=== PATIENT | male | born 1950 | race Caucasian/White ===

== ENCOUNTER 2021-10-06 12:16 | Outpatient (REF) | payer MEDICARE, SELFPAY ==
[2021-10-06 12:48] LABS: COVID-19 Test Negative (Negative); IDNOW Serial# 08D9AD1C
== END 2021-10-06 12:17 | disposition home or self-care (01) ==
LOC: HO.LAB 12:16
PROVIDERS: Visit Provider Internal Medicine
DX: Z20.822 Contact with and (suspected) exposure to COVID-19 (principal)
CPT/HCPCS: 36415; 87635; C9803

== ENCOUNTER 2023-10-18 06:21 | Day surgery (SDC) | payer MEDICARE, SELFPAY ==
[2023-10-13 14:09] VITALS: BMI 28.9
--- NOTE | 2023-10-15 07:20 | MHC.SHP ---
Pre-Procedural Eval Section A Date of Service: 10/15/23 The patient is an INPATIENT: No Changes since office visit: No Cold of Flu in the past 2 weeks, No New Medical Problems, No Changes in Medication and No Patient answered all questions The History & Physical has been completed within 30 days and I have reviewed it.: Yes Section B Chief Complaint: Age-related nuclear cataract, left eye Allergies: Allergies Allergy/AdvReac Type Severity Reaction Status Date / Time heparin Allergy Unknown Verified 10/13/23 10:13 horse serum Allergy Unknown Uncoded 10/13/23 10:13 Plan Diagnosis/Plan: Unchanged I have reviewed the history and physical and performed a pertinent physical examination on my patient. No changes have occurred unless specified. Time Spent With Patient Time: Total time managing care of this patient today ____ minutes.
--- NOTE | 2023-10-15 09:35 | P.CONAN_ITS ---
Documented by User: Charmaine Cortez NP 10/15/23 09:37 HPI - Anesthesia Eval Consult details Narrative: 72yo M for Left Cataract Extraction IOL Insertion Medically cleared No previous cataract Eliquis for afib s/p AVR [facility], [facility] Past Medical History Medical History (Updated 10/13/23 @ 13:51 by Sarai Richards RN) Skin cancer GERD (gastroesophageal reflux disease) Hyperlipidemia HTN (hypertension) Myocardial infarction Erectile dysfunction Microalbuminuria Post-nasal drip Diabetes Sleep apnea Aortic aneurysm without rupture DVT (deep venous thrombosis) Atrial fibrillation CAD (coronary artery disease) Insomnia Obesity (BMI 30.0-34.9) Ischemic cardiomyopathy History of cardioversion Hematoma Elevated serum creatinine Surgical History Surgical History (Updated 10/13/23 @ 13:53 by Sarai Richards RN) Hx of tonsillectomy Hx of coronary angioplasty H/O colonoscopy Hx of stentless aortic valve replacement Hx of CABG Social History Social History Are you a primary home care physical therapist to a significant other at home: No Do you presently have visiting nurse or other home services: No Patient Tobacco Use Status: Never used Tobacco Use of substances other than those prescribed or required for medical reasons: No Have you been hit, kicked, punched, or otherwise hurt by someone within the past year? If so, by whom?: No Advance Directives Information Provided: Yes Advance Directives on File: No Recently lost weight without trying: No Eating poorly because of decreased appetite: No Nutrition Risks: No Nutritional Risk Meds Allergies Allergy/AdvReac Type Severity Reaction Status Date / Time heparin Allergy Unknown Verified 10/13/23 10:13 horse serum Allergy Unknown Uncoded 10/13/23 10:13 Home Medications Medication Instructions Recorded Confirmed Last Taken Type amlodipine 5 mg tablet 10 mg PO DAILY 10/13/23 10/18/23 10/18/23 History apixaban 5 mg tablet (Eliquis) 5 mg PO BID 10/13/23 10/18/23 10/16/23 History ascorbic acid (vitamin C) 1,000 mg 1,000 mg PO BEDTIME 10/13/23 10/13/23 Unknown History tablet aspirin 81 mg tablet,delayed 81 mg PO DAILY 10/13/23 10/18/23 10/18/23 History release atorvastatin 80 mg tablet 80 mg PO DAILY 10/13/23 10/18/23 10/18/23 History cholecalciferol (vitamin D3) 25 25 mcg PO DAILY 10/13/23 10/13/23 Unknown History mcg (1,000 unit) tablet (Vitamin D3) chromium picolinate 200 mcg tablet 200 mcg PO DAILY 10/13/23 10/13/23 Unknown History coenzyme Q10 30 mg capsule 30 mg PO DAILY 10/13/23 10/13/23 Unknown History esomeprazole magnesium 20 mg 20 mg PO DAILY 10/13/23 10/18/23 10/18/23 History capsule,delayed release (Nexium) insulin glargine 100 unit/mL (3 46 unit subcut QPM 10/13/23 10/18/23 10/17/23 History mL) subcutaneous pen (Lantus Solostar U-100 Insulin) isosorbide mononitrate 30 mg 30 mg PO BEDTIME 10/13/23 10/13/23 Unknown History tablet,extended release 24 hr losartan 100 mg tablet 100 mg PO DAILY 10/13/23 10/13/23 Unknown History metformin 850 mg tablet 850 mg PO DAILY 10/13/23 10/13/23 Unknown History metoprolol succinate 100 mg 50 mg PO DAILY 10/13/23 10/18/23 10/18/23 History tablet,extended release 24 hr multivitamin 1 tab PO DAILY 10/13/23 10/13/23 Unknown History omega 8-hnd-laj-fish oil 1,000 mg 1 cap PO DAILY 10/13/23 10/13/23 Unknown History (120 mg-180 mg) capsule (Fish Oil) tamsulosin 0.4 mg capsule 0.4 mg PO BEDTIME 10/13/23 10/13/23 Unknown History vitamin E 268 mg (400 unit) capsule 268 mg PO DAILY 10/13/23 10/13/23 Unknown History Exam Height,Weight and Vital Signs: Height 5 ft 8 in Weight 86.183 kg Assessment and Plan Assessment Anesthesia Assessment: Chart Reviewed Documented by User: Dora Doran MD 10/18/23 07:25 PMFSH Past Medical History Medical History (Updated 10/13/23 @ 13:51 by Sarai Richards RN) Skin cancer GERD (gastroesophageal reflux disease) Hyperlipidemia HTN (hypertension) Myocardial infarction Erectile dysfunction Microalbuminuria Post-nasal drip Diabetes Sleep apnea Aortic aneurysm without rupture DVT (deep venous thrombosis) Atrial fibrillation CAD (coronary artery disease) Insomnia Obesity (BMI 30.0-34.9) Ischemic cardiomyopathy History of cardioversion Hematoma Elevated serum creatinine Family History Family history of problems with anesthesia: No Surgical History Surgical History (Updated 10/13/23 @ 13:53 by Sarai Richards RN) Hx of tonsillectomy Hx of coronary angioplasty H/O colonoscopy Hx of stentless aortic valve replacement Hx of CABG History of Problems with Anesthesia: No Social History Social History Are you a primary home care physical therapist to a significant other at home: No Do you presently have visiting nurse or other home services: No Patient Tobacco Use Status: Never used Tobacco Use of substances other than those prescribed or required for medical reasons: No Have you been hit, kicked, punched, or otherwise hurt by someone within the past year? If so, by whom?: No Advance Directives Information Provided: Yes Advance Directives on File: No Recently lost weight without trying: No Eating poorly because of decreased appetite: No Nutrition Risks: No Nutritional Risk Meds Allergies Allergy/AdvReac Type Severity Reaction Status Date / Time heparin Allergy Unknown Verified 10/13/23 10:13 horse serum Allergy Unknown Uncoded 10/13/23 10:13 Home Medications Medication Instructions Recorded Confirmed Last Taken Type amlodipine 5 mg tablet 10 mg PO DAILY 10/13/23 10/18/23 10/18/23 History apixaban 5 mg tablet (Eliquis) 5 mg PO BID 10/13/23 10/18/23 10/16/23 History ascorbic acid (vitamin C) 1,000 mg 1,000 mg PO BEDTIME 10/13/23 10/13/23 Unknown History tablet aspirin 81 mg tablet,delayed 81 mg PO DAILY 10/13/23 10/18/23 10/18/23 History release atorvastatin 80 mg tablet 80 mg PO DAILY 10/13/23 10/18/23 10/18/23 History cholecalciferol (vitamin D3) 25 25 mcg PO DAILY 10/13/23 10/13/23 Unknown History mcg (1,000 unit) tablet (Vitamin D3) chromium picolinate 200 mcg tablet 200 mcg PO DAILY 10/13/23 10/13/23 Unknown History coenzyme Q10 30 mg capsule 30 mg PO DAILY 10/13/23 10/13/23 Unknown History esomeprazole magnesium 20 mg 20 mg PO DAILY 10/13/23 10/18/23 10/18/23 History capsule,delayed release (Nexium) insulin glargine 100 unit/mL (3 46 unit subcut QPM 10/13/23 10/18/23 10/17/23 History mL) subcutaneous pen (Lantus Solostar U-100 Insulin) isosorbide mononitrate 30 mg 30 mg PO BEDTIME 10/13/23 10/13/23 Unknown History tablet,extended release 24 hr losartan 100 mg tablet 100 mg PO DAILY 10/13/23 10/13/23 Unknown History metformin 850 mg tablet 850 mg PO DAILY 10/13/23 10/13/23 Unknown History metoprolol succinate 100 mg 50 mg PO DAILY 10/13/23 10/18/23 10/18/23 History tablet,extended release 24 hr multivitamin 1 tab PO DAILY 10/13/23 10/13/23 Unknown History omega 8-zwi-odx-fish oil 1,000 mg 1 cap PO DAILY 10/13/23 10/13/23 Unknown History (120 mg-180 mg) capsule (Fish Oil) tamsulosin 0.4 mg capsule 0.4 mg PO BEDTIME 10/13/23 10/13/23 Unknown History vitamin E 268 mg (400 unit) capsule 268 mg PO DAILY 10/13/23 10/13/23 Unknown History Exam Airway Mallampati Class: II TM Dist: >3cm Neck ROM: Full Denture: Upper Heart: rrr Lungs: cta Assessment and Plan Assessment Anesthesia Assessment: Anesthesia Plan Discussed Final Anesthetic Review Family History of Problems with Anesthesia: No History of Problems with Anesthesia: No NPO: Yes ASA Class: III Final Preanesthetic Review: No Changes in Pt Med Stat, Meds/Allgs Chart Reviewed and Consent Obtained/Reviewed Patient Risk: Intermediate Procedure Risk: Intermediate Anesthetic Plan Anesthetic Plan: MAC: Disposition: Standard PACU
[2023-10-18 07:26] LABS: Glucose, Whole Blood 154 mg/dL (60-115)
[2023-10-18] MEDS: Tetracaine HCl/PF 0.5% Oph Sol 4 ML DROPS 1 DROP EYE-LEFT (07:28)
[2023-10-18] MEDS: Cyclopentolate 1 % Ophth Sol 2 ML DRPBTL 1 DROP EYE-LEFT ×3 (07:30→07:46)
[2023-10-18] MEDS: Tropicamide 1 % Ophth Sol 3 ML BTL 1 DROP EYE-LEFT ×3 (07:32→07:48)
[2023-10-18] MEDS: Ketorolac Tromethamine 0.5% Op 5 ML DROPS 1 DROP EYE-LEFT ×3 (07:34→07:50)
[2023-10-18] MEDS: Phenylephrine HCL 2.5% Oph SoL 2 ML BOTTLE 1 DROP EYE-LEFT ×3 (07:36→07:52)
[2023-10-18 07:44] VITALS: BP 137/81; PULSE 82; RESP 16; TEMP 36.6; O2SAT 98
[2023-10-18] MEDS: Lactated Ringers 500 ML 50 ML IV (07:44)
--- NOTE | 2023-10-18 08:22 | HO.PNOPHT ---
Ophthalmology Procedure Procedure Date of Service: 10/18/23 Ophthalmology Viscoelastic: Healleyla Duet Dual Pack Pro Ophthalmology Lenses: TECZULEMA [id number] (23) Procedure Notes: PREOPERATIVE DIAGNOSIS: Decreased visual acuity left eye secondary to cataract POSTOPERATIVE DIAGNOSIS: Same PROCEDURE: Left cataract extraction with intraocular lens insertion SURGEON: Mauricio Mcnally M.D. ANESTHESIA: Topical/MAC ESTIMATED BLOOD LOSS: None COMPLICATIONS: None After obtaining informed consent, the patient was brought to the operation room suite and placed in the supine position. After adequate sedation per anesthesia, topical drops of Tetracaine were given to the left eye. The eye was then prepped and draped in the usual sterile fashion. The operating room microscope was then positioned over the operative eye and a lid speculum placed. A paracentesis was created. Viscoelastic was then instilled into the anterior chamber. A three plane incision was then created temporally, utilizing a 2.85 mm keratome. Capsulotomy forceps were then utilized to create a circular tear capsulotomy. Hydrodissection and hydrodelineation were carried out until adequate mobilization of the nucleus occurred. Phacoemulsification was then utilized to remove the dense central nucleus followed by removal of the cortical material utilizing the automated aspiration irrigation unit. Viscoat elastic was instilled into the posterior capsular bag followed by placement of a posterior chamber intraocular lens without difficulty. The residual Viscoat elastic was then removed utilizing the automated IA machine. The wound was check and found to be watertight. The patient tolerated the procedure well and the lid speculum was removed. Intracameral injection of Vigamox 0.1 mL followed by a subtenon injection of Kenalog-40 0.2 mL were administered. The patient will be seen in the a.m.
[2023-10-18 08:47] VITALS: BP 124/75; RESP 16; TEMP 36.7; O2SAT 98
== END 2023-10-18 08:57 | disposition home or self-care (01) ==
PROVIDERS: PCP Internal Medicine; Visit Provider Ophthalmology
PROC: (CPT 66985; principal; 2023-10-18 08:20)
DX: H25.12 Age-related nuclear cataract, left eye (principal); H52.4 Presbyopia; I25.10 Atherosclerotic heart disease of native coronary artery without angina pectoris; Z95.1 Presence of aortocoronary bypass graft; I10 Essential (primary) hypertension; E78.00 Pure hypercholesterolemia, unspecified; E11.9 Type 2 diabetes mellitus without complications; Z79.4 Long term (current) use of insulin; Z79.84 Long term (current) use of oral hypoglycemic drugs; Z79.01 Long term (current) use of anticoagulants; Z79.82 Long term (current) use of aspirin; Z79.899 Other long term (current) drug therapy; Z88.8 Allergy status to other drugs, medicaments and biological substances; Z87.891 Personal history of nicotine dependence
CPT/HCPCS: 66984; 82947; J2250; J3010; J3301; V2632

== ENCOUNTER 2023-11-08 07:04 | Day surgery (SDC) | payer MEDICARE, SELFPAY ==
[2023-10-13 14:13] VITALS: BMI 28.9
--- NOTE | 2023-11-05 07:57 | MHC.SHP ---
Pre-Procedural Eval Section A Date of Service: 11/05/23 The patient is an INPATIENT: No Changes since office visit: No Cold of Flu in the past 2 weeks, No New Medical Problems, No Changes in Medication and No Patient answered all questions The History & Physical has been completed within 30 days and I have reviewed it.: Yes Section B Chief Complaint: Age-related nuclear cataract, right eye Allergies: Allergies Allergy/AdvReac Type Severity Reaction Status Date / Time heparin Allergy Unknown Verified 10/13/23 10:13 horse serum Allergy Unknown Uncoded 10/13/23 10:13 Plan Diagnosis/Plan: Unchanged I have reviewed the history and physical and performed a pertinent physical examination on my patient. No changes have occurred unless specified. Time Spent With Patient Time: Total time managing care of this patient today ____ minutes.
--- NOTE | 2023-11-05 09:16 | HO.ANESPROP2 ---
Documented by User: Charmaine Cortez NP 11/05/23 09:17 HPI - Anesthesia Eval Consult details Narrative: 72yo M for Right Cataract Multifocal with IOL Insertion Medically cleared Left eye 10/18/23: Fent 50, Midaz 1 Eliquis for afib PMFSH Past Medical History Medical History Skin cancer GERD (gastroesophageal reflux disease) Hyperlipidemia HTN (hypertension) Myocardial infarction Erectile dysfunction Microalbuminuria Post-nasal drip Diabetes Sleep apnea Aortic aneurysm without rupture DVT (deep venous thrombosis) Atrial fibrillation CAD (coronary artery disease) Insomnia Obesity (BMI 30.0-34.9) Ischemic cardiomyopathy History of cardioversion Hematoma Elevated serum creatinine Family History Family history of problems with anesthesia: No Surgical History Surgical History Hx of tonsillectomy Hx of coronary angioplasty H/O colonoscopy Hx of stentless aortic valve replacement Hx of CABG History of Problems with Anesthesia: No Social History Social History Are you a primary child care lead teacher to a significant other at home: No Do you presently have visiting nurse or other home services: No Patient Tobacco Use Status: Never used Tobacco Use of substances other than those prescribed or required for medical reasons: No Have you been hit, kicked, punched, or otherwise hurt by someone within the past year? If so, by whom?: No Are you DNR?: No Advance Directives: No Advance Directives Information Provided: Yes Advance Directives on File: No Recently lost weight without trying: No Eating poorly because of decreased appetite: No Nutrition Risks: No Nutritional Risk Poor oral hygiene: Yes (full upper denture) Meds Allergies Allergy/AdvReac Type Severity Reaction Status Date / Time heparin Allergy Unknown Verified 10/13/23 10:13 horse serum Allergy Unknown Uncoded 10/13/23 10:13 Home Medications Medication Instructions Recorded Confirmed Last Taken Type amlodipine 5 mg tablet 10 mg PO DAILY 10/13/23 10/18/23 11/08/23 History apixaban 5 mg tablet (Eliquis) 5 mg PO BID 10/13/23 10/18/23 11/06/23 History ascorbic acid (vitamin C) 1,000 mg 1,000 mg PO BEDTIME 10/13/23 10/13/23 Unknown History tablet aspirin 81 mg tablet,delayed 81 mg PO DAILY 10/13/23 10/18/23 11/08/23 History release atorvastatin 80 mg tablet 80 mg PO DAILY 10/13/23 10/18/23 10/18/23 History cholecalciferol (vitamin D3) 25 25 mcg PO DAILY 10/13/23 10/13/23 Unknown History mcg (1,000 unit) tablet (Vitamin D3) chromium picolinate 200 mcg tablet 200 mcg PO DAILY 10/13/23 10/13/23 Unknown History coenzyme Q10 30 mg capsule 30 mg PO DAILY 10/13/23 10/13/23 Unknown History esomeprazole magnesium 20 mg 20 mg PO DAILY 10/13/23 10/18/23 10/18/23 History capsule,delayed release (Nexium) insulin glargine 100 unit/mL (3 46 unit subcut QPM 10/13/23 11/08/23 11/07/23 History mL) subcutaneous pen (Lantus Solostar U-100 Insulin) isosorbide mononitrate 30 mg 30 mg PO BEDTIME 10/13/23 10/13/23 11/08/23 History tablet,extended release 24 hr losartan 100 mg tablet 100 mg PO DAILY 10/13/23 10/13/23 Unknown History metformin 850 mg tablet 850 mg PO DAILY 10/13/23 10/13/23 11/07/23 History metoprolol succinate 100 mg 50 mg PO DAILY 10/13/23 10/18/23 11/08/23 History tablet,extended release 24 hr multivitamin 1 tab PO DAILY 10/13/23 10/13/23 Unknown History omega 9-sig-jcv-fish oil 1,000 mg 1 cap PO DAILY 10/13/23 10/13/23 11/07/23 History (120 mg-180 mg) capsule (Fish Oil) tamsulosin 0.4 mg capsule 0.4 mg PO BEDTIME 10/13/23 10/13/23 Unknown History vitamin E 268 mg (400 unit) capsule 268 mg PO DAILY 10/13/23 10/13/23 Unknown History Exam Height,Weight and Vital Signs: Height 5 ft 8 in Weight 86.183 kg Assessment and Plan Assessment Anesthesia Assessment: Chart Reviewed Final Anesthetic Review Family History of Problems with Anesthesia: No History of Problems with Anesthesia: No Documented by User: Khushi Wing MD 11/08/23 08:24 [facility] Past Medical History Medical History Skin cancer GERD (gastroesophageal reflux disease) Hyperlipidemia HTN (hypertension) Myocardial infarction Erectile dysfunction Microalbuminuria Post-nasal drip Diabetes Sleep apnea Aortic aneurysm without rupture DVT (deep venous thrombosis) Atrial fibrillation CAD (coronary artery disease) Insomnia Obesity (BMI 30.0-34.9) Ischemic cardiomyopathy History of cardioversion Hematoma Elevated serum creatinine Surgical History Surgical History Hx of tonsillectomy Hx of coronary angioplasty H/O colonoscopy Hx of stentless aortic valve replacement Hx of CABG Social History Social History Are you a primary child care lead teacher to a significant other at home: No Do you presently have visiting nurse or other home services: No Patient Tobacco Use Status: Never used Tobacco Use of substances other than those prescribed or required for medical reasons: No Have you been hit, kicked, punched, or otherwise hurt by someone within the past year? If so, by whom?: No Are you DNR?: No Advance Directives: No Advance Directives Information Provided: Yes Advance Directives on File: No Recently lost weight without trying: No Eating poorly because of decreased appetite: No Nutrition Risks: No Nutritional Risk Poor oral hygiene: Yes (full upper denture) Meds Allergies Allergy/AdvReac Type Severity Reaction Status Date / Time heparin Allergy Unknown Verified 10/13/23 10:13 horse serum Allergy Unknown Uncoded 10/13/23 10:13 Home Medications Medication Instructions Recorded Confirmed Last Taken Type amlodipine 5 mg tablet 10 mg PO DAILY 10/13/23 10/18/23 11/08/23 History apixaban 5 mg tablet (Eliquis) 5 mg PO BID 10/13/23 10/18/23 11/06/23 History ascorbic acid (vitamin C) 1,000 mg 1,000 mg PO BEDTIME 10/13/23 10/13/23 Unknown History tablet aspirin 81 mg tablet,delayed 81 mg PO DAILY 10/13/23 10/18/23 11/08/23 History release atorvastatin 80 mg tablet 80 mg PO DAILY 10/13/23 10/18/23 10/18/23 History cholecalciferol (vitamin D3) 25 25 mcg PO DAILY 10/13/23 10/13/23 Unknown History mcg (1,000 unit) tablet (Vitamin D3) chromium picolinate 200 mcg tablet 200 mcg PO DAILY 10/13/23 10/13/23 Unknown History coenzyme Q10 30 mg capsule 30 mg PO DAILY 10/13/23 10/13/23 Unknown History esomeprazole magnesium 20 mg 20 mg PO DAILY 10/13/23 10/18/23 10/18/23 History capsule,delayed release (Nexium) insulin glargine 100 unit/mL (3 46 unit subcut QPM 10/13/23 11/08/23 11/07/23 History mL) subcutaneous pen (Lantus Solostar U-100 Insulin) isosorbide mononitrate 30 mg 30 mg PO BEDTIME 10/13/23 10/13/23 11/08/23 History tablet,extended release 24 hr losartan 100 mg tablet 100 mg PO DAILY 10/13/23 10/13/23 Unknown History metformin 850 mg tablet 850 mg PO DAILY 10/13/23 10/13/23 11/07/23 History metoprolol succinate 100 mg 50 mg PO DAILY 10/13/23 10/18/23 11/08/23 History tablet,extended release 24 hr multivitamin 1 tab PO DAILY 10/13/23 10/13/23 Unknown History omega 5-abc-ghe-fish oil 1,000 mg 1 cap PO DAILY 10/13/23 10/13/23 11/07/23 History (120 mg-180 mg) capsule (Fish Oil) tamsulosin 0.4 mg capsule 0.4 mg PO BEDTIME 10/13/23 10/13/23 Unknown History vitamin E 268 mg (400 unit) capsule 268 mg PO DAILY 10/13/23 10/13/23 Unknown History Exam Airway Mallampati Class: II TM Dist: >3cm Neck ROM: Full Heart: rrr Lungs: cta Assessment and Plan Assessment Anesthesia Assessment: Anesthesia Plan Discussed Final Anesthetic Review NPO: Yes ASA Class: III Final Preanesthetic Review: No Changes in Pt Med Stat, Meds/Allgs Chart Reviewed, Consent Obtained/Reviewed and Anes Risks/Benef Reviewed Patient Risk: Intermediate Procedure Risk: Low Anesthetic Plan Anesthetic Plan: MAC: Disposition: Standard PACU
[2023-11-08 07:09] VITALS: BP 149/95; PULSE 82; RESP 18; TEMP 36.1; O2SAT 96
[2023-11-08 07:53] VITALS: BMI 28.9
--- NOTE | 2023-11-08 08:24 | HO.ANESPROP2 ---
HPI - Anesthesia Eval Consult details Narrative: Right [facility] Past Medical History Medical History Skin cancer GERD (gastroesophageal reflux disease) Hyperlipidemia HTN (hypertension) Myocardial infarction Erectile dysfunction Microalbuminuria Post-nasal drip Diabetes Sleep apnea Aortic aneurysm without rupture DVT (deep venous thrombosis) Atrial fibrillation CAD (coronary artery disease) Insomnia Obesity (BMI 30.0-34.9) Ischemic cardiomyopathy History of cardioversion Hematoma Elevated serum creatinine Family History Family history of problems with anesthesia: No Surgical History Surgical History Hx of tonsillectomy Hx of coronary angioplasty H/O colonoscopy Hx of stentless aortic valve replacement Hx of CABG History of Problems with Anesthesia: No Social History Social History Are you a primary patient care provider to a significant other at home: No Do you presently have visiting nurse or other home services: No Patient Tobacco Use Status: Never used Tobacco Use of substances other than those prescribed or required for medical reasons: No Have you been hit, kicked, punched, or otherwise hurt by someone within the past year? If so, by whom?: No Are you DNR?: No Advance Directives: No Advance Directives Information Provided: Yes Advance Directives on File: No Recently lost weight without trying: No Eating poorly because of decreased appetite: No Nutrition Risks: No Nutritional Risk Poor oral hygiene: Yes (full upper denture) Meds Allergies Allergy/AdvReac Type Severity Reaction Status Date / Time heparin Allergy Unknown Verified 10/13/23 10:13 horse serum Allergy Unknown Uncoded 10/13/23 10:13 Active Medications: Current Medications Lactated Ringer's (Lr) 500 mls @ 50 mls/hr IV .Q10H ANTONIO Stop: 11/08/23 17:44 Last Admin: 11/08/23 07:58 Dose: 50 mls/hr Povidone Iodine (Povidone Iodine 5 % Ophth Soln 30 Ml Bottle) 1 appl EYE-RIGHT PREOP PRN PRN Reason: Pre-Op Surgical Implant Prophy Home Medications Medication Instructions Recorded Confirmed Last Taken Type amlodipine 5 mg tablet 10 mg PO DAILY 10/13/23 10/18/2324 History apixaban 5 mg tablet (Eliquis) 5 mg PO BID 10/13/23 10/18/23 11/06/23 History ascorbic acid (vitamin C) 1,000 mg 1,000 mg PO BEDTIME 10/13/23 10/13/23 Unknown History tablet aspirin 81 mg tablet,delayed 81 mg PO DAILY 10/13/23 10/18/23 11/08/23 History release atorvastatin 80 mg tablet 80 mg PO DAILY 10/13/23 10/18/23 10/18/23 History cholecalciferol (vitamin D3) 25 25 mcg PO DAILY 10/13/23 10/13/23 Unknown History mcg (1,000 unit) tablet (Vitamin D3) chromium picolinate 200 mcg tablet 200 mcg PO DAILY 10/13/23 10/13/23 Unknown History coenzyme Q10 30 mg capsule 30 mg PO DAILY 10/13/23 10/13/23 Unknown History esomeprazole magnesium 20 mg 20 mg PO DAILY 10/13/23 10/18/23 10/18/23 History capsule,delayed release (Nexium) insulin glargine 100 unit/mL (3 46 unit subcut QPM 10/13/23 11/08/23 11/07/23 History mL) subcutaneous pen (Lantus Solostar U-100 Insulin) isosorbide mononitrate 30 mg 30 mg PO BEDTIME 10/13/23 10/13/23 11/08/23 History tablet,extended release 24 hr losartan 100 mg tablet 100 mg PO DAILY 10/13/23 10/13/23 Unknown History metformin 850 mg tablet 850 mg PO DAILY 10/13/23 10/13/23 11/07/23 History metoprolol succinate 100 mg 50 mg PO DAILY 10/13/23 10/18/23 11/08/23 History tablet,extended release 24 hr multivitamin 1 tab PO DAILY 10/13/23 10/13/23 Unknown History omega 8-cot-beu-fish oil 1,000 mg 1 cap PO DAILY 10/13/23 10/13/23 11/07/23 History (120 mg-180 mg) capsule (Fish Oil) tamsulosin 0.4 mg capsule 0.4 mg PO BEDTIME 10/13/23 10/13/23 Unknown History vitamin E 268 mg (400 unit) capsule 268 mg PO DAILY 10/13/23 10/13/23 Unknown History Exam Height,Weight and Vital Signs: Height 5 ft 8 in Weight 86.19 kg Last Vital Signs Temp 97 F 11/08/23 07:09 Pulse 82 11/08/23 07:09 Resp 18 11/08/23 07:09 BP 149/95 H 11/08/23 07:09 Pulse Ox 96 11/08/23 07:09 O2 Del Method Room Air 11/08/23 07:09 Pertinent Lab Results Pertinent Lab Results: Laboratory Tests 11/08/23 07:14 POC Glucose 121 H Assessment and Plan Final Anesthetic Review Family History of Problems with Anesthesia: No History of Problems with Anesthesia: No
--- NOTE | 2023-11-08 08:59 | HO.PNOPHT ---
Ophthalmology Procedure Procedure Date of Service: 11/08/23 Ophthalmology Viscoelastic: Healleyla Mackt Dual Pack Pro Ophthalmology Lenses: TECNIS [id number] (23.5) Procedure Notes: PREOPERATIVE DIAGNOSIS: Decreased visual acuity right eye secondary to cataract POSTOPERATIVE DIAGNOSIS: Same PROCEDURE: Right cataract extraction with intraocular lens insertion SURGEON: Mauricio Mcnally M.D. ANESTHESIA: Topical/MAC ESTIMATED BLOOD LOSS: None COMPLICATIONS: None After obtaining informed consent, the patient was brought to the operating room suite and placed in the supine position. After adequate sedation per anesthesia, topical drops of Tetracaine were given to the right eye. The eye was then prepped and draped in the usual sterile fashion. The operating room microscope was then positioned over the operative eye and a lid speculum placed. A paracentesis was created. Viscoelastic was then instilled into the anterior chamber. A three plane incision was then created temporally, utilizing a 2.85 mm keratome. Capsulotomy forceps were then utilized to create a circular tear capsulotomy. Hydrodissection and hydrodelineation were carried out until adequate mobilization of the nucleus occurred. Phacoemulsification was then utilized to remove the dense central nucleus followed by removal of the cortical material utilizing the automated aspiration irrigation unit. Viscoelastic was instilled into the posterior capsular bag followed by placement of a posterior chamber intraocular lens without difficulty. The residual Viscoelastic was then removed utilizing the automated IA machine. The wound was checked and found to be watertight. The patient tolerated the procedure well and the lid speculum was removed. Intracameral injection of Vigamox 0.1 mL followed by a subtenon injection of Kenalog-40 0.2 mL were administered. The patient will be seen in the a.m.
[2023-11-08 09:33] VITALS: BP 139/81; PULSE 78; RESP 16; TEMP 36.1; O2SAT 96
== END 2023-11-08 09:48 | disposition home or self-care (01) ==
PROVIDERS: PCP Internal Medicine; Visit Provider Ophthalmology
PROC: (CPT 66985; principal; 2023-11-08 08:50)
DX: H25.11 Age-related nuclear cataract, right eye (principal); H52.4 Presbyopia; H35.61 Retinal hemorrhage, right eye; I10 Essential (primary) hypertension; E78.00 Pure hypercholesterolemia, unspecified; I25.10 Atherosclerotic heart disease of native coronary artery without angina pectoris; Z95.1 Presence of aortocoronary bypass graft; E11.9 Type 2 diabetes mellitus without complications; Z79.01 Long term (current) use of anticoagulants; Z79.84 Long term (current) use of oral hypoglycemic drugs; Z79.4 Long term (current) use of insulin; Z88.8 Allergy status to other drugs, medicaments and biological substances; Z79.899 Other long term (current) drug therapy; Z87.891 Personal history of nicotine dependence; Z98.890 Other specified postprocedural states
CPT/HCPCS: 66984; 82947; J2250; J3010; J3301; V2632